=== PATIENT | female | born 1995 | race African-American/Black ===

== ENCOUNTER 2025-01-10 21:51 | Emergency (ER) | payer SELFPAY ==
[~2025-01-10] VITALS: Ht 157.5 cm; Wt 87.0 kg
[~2025-01-10 21:51] MED LIST: FERROUS SULFATE; MECLIZINE
[2025-01-10 22:04] VITALS: O2SAT 100
[2025-01-10 22:37] LABS: CLARITY URINE CLEAR (CLEAR); COLOR URINE YELLOW (YELLOW); GLUCOSE URINE NEGATIVE (NEGATIVE); KETONES URINE TRACE (NEGATIVE); LEUKOCYTE ESTERASE URINE NEGATIVE (NEGATIVE); NITRITE URINE NEGATIVE (NEGATIVE); OCCULT BLOOD URINE 1+ (NEGATIVE); PH URINE 6.5 (4.5-8.0); PROTEIN URINE NEGATIVE (NEGATIVE); SPECIFIC GRAVITY URINE 1.025 (1.005-1.030); UROBILINOGEN URINE 1.0 E.U./dL (0.2-1.0)
[2025-01-10 22:58] LABS: BASOPHILS % 0.6 % (0.0-2.0); EOSINOPHILS % 1.2 % (0.0-5.0); HEMATOCRIT. 37.5 % (36.0-48.0); HEMOGLOBIN. 12.4 g/dL (12.0-16.0); LYMPHOCYTES % 38.4 % (20.0-50.0); MEAN PLATELET VOLUME 8.9 fl (7.4-10.4); MONOCYTES % 8.0 % (2.0-8.0); NEUTROPHILS % 51.8 % (40.0-76.0); PLATELET 316 x1000/uL (130-400); RED BLOOD CELL COUNT 3.98 mill/uL (4.2-5.4); RED CELL DISTRIBUTION WIDTH 15.8 % (11.6-14.6)
[2025-01-10 22:58] LABS: BACTERIA URINE NONE SEEN; RBC URINE 0-2 /hpf (0-2); SQUAMOUS EPITHELIAL CELL URINE 1+ /lpf (RARE/1+); WBC URINE NONE SEEN /hpf (0-2)
[2025-01-10 23:09] LABS: HCG SCREEN NEGATIVE
[2025-01-10 23:10] LABS: CREATININE 1.1 mg/dL (0.6-1.0)
[2025-01-10 23:11] LABS: UREA NITROGEN BLOOD 16 mg/dL (9-23)
[2025-01-10 23:12] LABS: ASPARTATE AMINOTRANSFERASE 23 IU/L (<34); BILIRUBIN DIRECT 0.1 mg/dL (<=3.0)
[2025-01-10 23:13] LABS: BILIRUBIN TOTAL 0.3 mg/dL (0.1-1.0); INR 0.9; PROTEIN TOTAL 7.0 g/dL (6.0-8.3)
[2025-01-10 23:15] LABS: B-HCG QUANTITATIVE 2 mIU/mL (<6)
[2025-01-11] MEDS ORDERED: IBUP-2028 MT (00:27)
[2025-01-11 00:49] VITALS: BP 115/95; PULSE 100; RESP 20; TEMP 37.1; O2SAT 100
== END 2025-01-11 00:52 | disposition home or self-care (01) ==
LOC: ER 21:51
DX: D25.9 Leiomyoma of uterus, unspecified (principal); M54.50 Low back pain, unspecified; F41.9 Anxiety disorder, unspecified; Z79.899 Other long term (current) drug therapy; Z98.890 Other specified postprocedural states
CPT/HCPCS: 36415; 76830; 76856; 80048; 80076; 81003; 81025; 83735; 84702; 84703; 85025; 86850; 86900; 99284